=== PATIENT | male | born 1990 | race African-American/Black ===

== ENCOUNTER 2017-10-07 19:02 | Emergency (ER) | payer OTHER, MEDICAID ==
[2017-10-07 19:03] VITALS: BP 127/80; PULSE 90; RESP 16; O2SAT 99
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
[2017-10-07] MEDS ORDERED: TETANUS/DIPHTHERIA TOXOID ADULT 0.5 ML VIAL IM ONE (20:45)
[2017-10-07] MEDS ORDERED: ACETAMINOPHEN 500 MG CPLT PO ONE (20:45)
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
[2017-10-07] MEDS ORDERED: CYCL10TA PO (21:10)
[2017-10-07] MEDS ORDERED: NAPR500 PO (21:10)
== END 2017-10-07 21:25 | disposition home or self-care (01) ==
LOC: NEPK 19:02
DX: S09.90XA Unspecified injury of head, initial encounter (principal); S80.01XA Contusion of right knee, initial encounter; V49.59XA Passenger injured in collision with other motor vehicles in traffic accident, initial encounter; Y92.410 Unspecified street and highway as the place of occurrence of the external cause; Z72.0 Tobacco use; Z23 Encounter for immunization
CPT/HCPCS: 70450; 71020; 72125; 73564; 90471; 90714

== ENCOUNTER 2017-11-16 02:00 | Emergency (ER) | payer BC, MEDICAID ==
[~2017-11-16] VITALS: Ht 172.7 cm; Wt 68.2 kg
[~2017-11-16 02:00] MED LIST: CYCL10TA PO; NAPR500 PO
[2017-11-16 02:26] VITALS: BP 129/80; PULSE 79; RESP 16; TEMP 98.2; O2SAT 98
--- NOTE | 2017-11-16 02:37 | PD ---
HPI Chief Complaint: Lump, Cyst, Hernia Time Seen by Provider: 02:25 Travel History International Travel<30 days: No Contact w/Intl Traveler<30days: No Traveled to known affect area: No History of Present Illness HPI 27-year-old male present for evaluation of a painful lump in the upper gluteal cleft. Symptoms started 2 days ago. Pain is throbbing, constant, worse when sitting. He has never had this problem before. Denies rectal pain, fevers or chills, abdominal pain, nausea or vomiting, drainage. No other complaints at this time. PFS Past Medical History Medical other: Yes (HIV +) Past Surgical History Surgical History: No Previous Surgery Social History Alcohol Use: Yes Tobacco Use: Yes (6 cigarettes per day) Substance Use: No Allergies-Medications (Allergen,Severity, Reaction): Coded Allergies: No Known Allergies (Unverified Adverse Reaction, Unknown, 11/16/17) Reported Meds & Prescriptions Reported Meds & Active Scripts Active Augmentin (Amoxicillin-Clavulanate) 875-125 Mg Tab 1 Tab PO BID 10 Days Naprosyn (Naproxen) 500 Mg Tab 500 Mg PO Q12HR PRN Review of Systems Except as stated in HPI: all other systems reviewed are Neg Physical Exam Narrative GENERAL: Well-nourished male in no acute distress SKIN: Warm and dry. Pilonidal cyst formation noted in the upper gluteal cleft, tender to palpation, 1 cm. HEAD: Atraumatic. Normocephalic. EYES: Pupils equal and round. No scleral icterus. No injection or drainage. ENT: No nasal bleeding or discharge. Mucous membranes pink and moist. NECK: Trachea midline. No JVD. CARDIOVASCULAR: Regular rate and rhythm. No murmur appreciated. RESPIRATORY: No accessory muscle use. Clear to auscultation. Breath sounds equal bilaterally. GASTROINTESTINAL: Abdomen soft, non-tender, nondistended. Hepatic and splenic margins not palpable. Data Data Last Documented VS Vital Signs Date Time Temp Pulse Resp B/P (MAP) Pulse Ox O2 Delivery O2 Flow Rate FiO2 11/16/17 02:26 98.2 79 16 129/80 (96) 98 Room Air Orders Orders Lidocaine 1% Inj (50 Ml) (Xylocaine 1% I (11/16/17 02:45) Wound Culture And Gram Stain (11/16/17 02:34) Ed Discharge Order (11/16/17 02:52) [facility] Medical Decision Making Medical Screen Exam Complete: Yes Emergency Medical Condition: Yes Medical Record Reviewed: Yes Differential Diagnosis Pilonidal cyst, abscess, cellulitis Narrative Course Examination reveals a pilonidal cyst. Incision and drainage performed, patient verbally consented. He is being discharged with Augmentin. Procedures Procedure Narrative INCISION AND DRAINAGE OF INFECTED PILONIDAL CYST: The area was prepped and was sterilely draped. A subcutaneous wheal of 1% Xylocaine with a total number 8 mL was used to anesthetize the area. The area was properly anesthetized. A number 11 scalpel was used to make a 1 -cm incision across the area of the abscess. Cultures were obtained. The abscess was drained an irrigated with normal saline. Diagnosis Primary Impression: Pilonidal cyst with abscess Additional Instructions: Medication as prescribed. Tylenol or Motrin for pain. Follow up with a colorectal surgeon as needed. Warm baths 20 minutes at a time twice a day. Return for any emergent medical conditions. Med/Other Pt SpecificInfo: Prescription(s) given Scripts Amoxicillin-Clavulanate (Augmentin) 875-125 Mg Tab 1 TAB PO BID for Infection for 10 Days, #20 TAB 0 Refills Prov: Michelle Brandt DO 11/16/17 Disposition: 01 DISCHARGE HOME Condition: Stable Mauricio Jimenes Nov 16, 2017 02:37
[2017-11-16] MEDS ORDERED: LIDOCAINE HCL 1% 50 ML VIAL INFIL ONE (02:45)
[2017-11-16] MEDS ORDERED: AUGM875T3 PO (02:52)
== END 2017-11-16 03:22 | disposition home or self-care (01) ==
LOC: NEPD 02:00
DX: L05.01 Pilonidal cyst with abscess (principal); A49.01 Methicillin susceptible Staphylococcus aureus infection, unspecified site; F17.210 Nicotine dependence, cigarettes, uncomplicated; Z21 Asymptomatic human immunodeficiency virus [HIV] infection status
CPT/HCPCS: 10060; 86403; 87070; 87186

== ENCOUNTER 2017-12-18 00:44 | Emergency (ER) | payer BC ==
[~2017-12-18] VITALS: Ht 172.7 cm; Wt 68.0 kg
[~2017-12-18 00:44] MED LIST changes: +AUGM875T3 PO; -CYCL10TA PO
[2017-12-18 00:46] VITALS: BP 136/92; PULSE 82; RESP 16; TEMP 99.1; O2SAT 100
--- NOTE | 2017-12-18 03:35 | PD ---
HPI Chief Complaint: ENT Complaint Time Seen by Provider: 03:35 Travel History International Travel<30 days: No Contact w/Intl Traveler<30days: No Traveled to known affect area: No History of Present Illness HPI 27-year-old male came to the emergency room with history of bumps around his anus. Patient said he noticed it for past 4-5 days. After that he also noticed that he was having some lesions around his left angle of the mouth. Patient has history of renal sex in the past and the last one being a month and a half ago. He practices unprotected sex. No history of rectal bleeding or pain. [facility] Past Medical History Narrative Medical List of his past medical, surgical, social and family history as reviewed from the nursing note. Medical History: Denies Significant Hx Diminished Hearing: No Past Surgical History Surgical History: No Previous Surgery Social History Alcohol Use: Yes Tobacco Use: Yes (3-4 CIGS DAILY) Substance Use: Yes (WEED) Allergies-Medications (Allergen,Severity, Reaction): Coded Allergies: No Known Allergies (Unverified Adverse Reaction, Unknown, 12/18/17) Comments No known drug allergies. Reported Meds & Prescriptions Reported Meds & Active Scripts Active Bacitracin Topical 500 Unit/Gm Oint 1 Applic TOPICAL BID 7 Days Augmentin (Amoxicillin-Clavulanate) 875-125 Mg Tab 1 Tab PO BID 10 Days Naprosyn (Naproxen) 500 Mg Tab 500 Mg PO Q12HR PRN Narrative Medication List of his home medications reviewed from the nursing note. Review of Systems Except as stated in HPI: all other systems reviewed are Neg Physical Exam Narrative GENERAL: Awake, alert, no obvious distress SKIN: Focused skin assessment warm/dry. HEAD: Atraumatic. Normocephalic. EYES: Pupils equal and round. No scleral icterus. No injection or drainage. ENT: No nasal bleeding or discharge. Mucous membranes pink and moist. The right angle of the mouth has some dry papular lesion that is slightly erythematous NECK: Trachea midline. No JVD. CARDIOVASCULAR: Regular rate and rhythm. No murmur appreciated. RESPIRATORY: No accessory muscle use. Clear to auscultation. Breath sounds equal bilaterally. GASTROINTESTINAL: Abdomen soft, non-tender, nondistended. Hepatic and splenic margins not palpable. Skin around the perianal area was full of warts. MUSCULOSKELETAL: No obvious deformities. No clubbing. No cyanosis. No edema. NEUROLOGICAL: Awake and alert. No obvious cranial nerve deficits. Motor grossly within normal limits. Normal speech. PSYCHIATRIC: Appropriate mood and affect; insight and judgment normal. Data Data Last Documented VS Vital Signs Date Time Temp Pulse Resp B/P (MAP) Pulse Ox O2 Delivery O2 Flow Rate FiO2 12/18/17 03:59 12/18/17 00:46 99.1 82 16 100 Orders Orders Ed Discharge Order (12/18/17 03:43) [facility] Medical Decision Making Medical Screen Exam Complete: Yes Emergency Medical Condition: Yes Medical Record Reviewed: Yes Differential Diagnosis HPV Narrative Course Patient was given education regarding HPV. I let him know that there was no treatment that I could offer from the emergency room. But he could Follow-up with the bushing and broach operator and they could discuss about cryo cauterization Procedures EKG Prior to Arrival: No Diagnosis Primary Impression: HPV (human papilloma virus) anogenital infection Additional Impression: Impetigo Referrals: Primary Care Physician Additional Instructions: Given the nature of the infection it could transmit this to your sexual partner by anal sex without protection. She could go to a bushing and broach operator who could possibly chemical or cryo precipitate it. Apply the ointment given to you as per the prescription direction. On your face only. Med/Other Pt SpecificInfo: Prescription(s) given Scripts Bacitracin Topical (Bacitracin Topical) 500 Unit/Gm Oint 1 APPLIC TOPICAL BID for Infection for 7 Days, #30 GM 0 Refills Prov: Adithya Woodson MD 12/18/17 Disposition: 01 DISCHARGE HOME Condition: Stable Adithya Woodson MD Dec 18, 2017 03:35
[2017-12-18] MEDS ORDERED: BACI500O9 TOPICAL (03:46)
== END 2017-12-18 04:03 | disposition home or self-care (01) ==
LOC: NEPC 00:44
DX: A63.0 Anogenital (venereal) warts (principal); L01.00 Impetigo, unspecified; F17.210 Nicotine dependence, cigarettes, uncomplicated
CPT/HCPCS: 99283

== ENCOUNTER 2017-12-22 09:33 | Emergency (ER) | payer BC ==
[~2017-12-22] VITALS: Ht 172.7 cm; Wt 67.0 kg
[~2017-12-22 09:33] MED LIST changes: +BACI500O9 TOPICAL
[2017-12-22 09:34] VITALS: BP 149/86; PULSE 98; RESP 18; TEMP 98.7; O2SAT 99
[2017-12-22] MEDS ORDERED: ACYC800T PO (09:49)
--- NOTE | 2017-12-22 09:57 | PD ---
HPI Chief Complaint: GI Complaint Time Seen by Provider: 09:44 Travel History International Travel<30 days: No Contact w/Intl Traveler<30days: No Traveled to known affect area: No History of Present Illness HPI 27-year-old male states he came here initially when he just had a couple lesions and states that he was discharged and told to continue supportive care. He states that he then went to [facility] when he had more lesions from shingles and was placed on acyclovir. He states that now he is having pain in his mouth and nonbloody emesis from the medication. He states he was also given hydrocodone for pain. He denies any other concurrent complaints at this time. He states he is from [place] that he is down here visiting his boyfriend. [facility] Past Medical History Medical History: Denies Significant Hx Diminished Hearing: No Past Surgical History Surgical History: No Previous Surgery Social History Alcohol Use: Yes Tobacco Use: Yes (3-4 CIGS DAILY) Substance Use: Yes (WEED) Allergies-Medications (Allergen,Severity, Reaction): Coded Allergies: No Known Allergies (Unverified Adverse Reaction, Unknown, 12/22/17) Reported Meds & Prescriptions Reported Meds & Active Scripts Active Percocet (Oxycodone-Acetaminophen) 5-325 mg Tab 1 Tab PO Q6H PRN Zofran Odt (Ondansetron Odt) 4 Mg Tab 4 Mg SL Q6HR PRN Reported Acyclovir 800 Mg Tab 800 Mg PO 5 TIMES A DAY Review of Systems Except as stated in HPI: all other systems reviewed are Neg Physical Exam Narrative GENERAL: Well-nourished, well-developed patient. SKIN: Warm and dry. Patient has rash noted to right lower face in right side of his tongue without involvement of upper face and eye HEAD: Normocephalic and atraumatic. EYES: No injection or drainage. ENT: No nasal drainage noted. NECK: Supple, trachea midline. No meningeal signs CARDIOVASCULAR: Regular rate and rhythm RESPIRATORY: Breath sounds equal bilaterally. No accessory muscle use. GASTROINTESTINAL: Abdomen soft, non-tender, nondistended. EXTREMITIES: No edema. NEUROLOGICAL: Awake and alert. Motor and sensory grossly within normal limits. Normal speech. Data Data Last Documented VS Vital Signs Date Time Temp Pulse Resp B/P (MAP) Pulse Ox O2 Delivery O2 Flow Rate FiO2 12/22/17 11:22 69 18 138/86 (103) 100 Room Air 12/22/17 09:34 98.7 Orders Orders Ondansetron Odt (Zofran Odt) (12/22/17 10:00) Oxycodone-Acetamin 5-325 Mg (Percocet (12/22/17 10:30) Oral Rehydration (12/22/17 10:23) Ed Discharge Order (12/22/17 10:52) Complete Blood Count With Diff (12/22/17 11:16) Basic Metabolic Panel (Bmp) (12/22/17 11:16) Iv Access Insert/Monitor (12/22/17 11:16) Sodium Chlor 0.9% 1000 Ml Inj (Ns 1000 M (12/22/17 11:30) Promethazine Inj (Phenergan Inj) (12/22/17 11:30) Labs Laboratory Tests Test 12/22/17 11:30 White Blood Count 9.4 TH/MM3 Red Blood Count 5.10 MIL/MM3 Hemoglobin 14.2 GM/DL Hematocrit 42.3 % Mean Corpuscular Volume 83.0 FL Mean Corpuscular Hemoglobin 27.8 PG Mean Corpuscular Hemoglobin Concent 33.5 % Red Cell Distribution Width 14.3 % Platelet Count 196 TH/MM3 Mean Platelet Volume 8.3 FL Neutrophils (%) (Auto) 65.3 % Lymphocytes (%) (Auto) 18.5 % Monocytes (%) (Auto) 15.5 % Eosinophils (%) (Auto) 0.4 % Basophils (%) (Auto) 0.3 % Neutrophils # (Auto) 6.1 TH/MM3 Lymphocytes # (Auto) 1.7 TH/MM3 Monocytes # (Auto) 1.5 TH/MM3 Eosinophils # (Auto) 0.0 TH/MM3 Basophils # (Auto) 0.0 TH/MM3 CBC Comment DIFF FINAL Differential Comment Blood Urea Nitrogen 10 MG/DL Creatinine 1.04 MG/DL Random Glucose 106 MG/DL Calcium Level 9.2 MG/DL Sodium Level 136 MEQ/L Potassium Level 3.5 MEQ/L Chloride Level 99 MEQ/L Carbon Dioxide Level 31.0 MEQ/L Anion Gap 6 MEQ/L Estimat Glomerular Filtration Rate 102 ML/MIN MDM Medical Decision Making Medical Screen Exam Complete: Yes Emergency Medical Condition: Yes Medical Record Reviewed: Yes (past history confirmed) Interpretation(s) CBC & BMP Diagram 12/22/17 11:30 Calcium Level 9.2 Differential Diagnosis Shingles, medication effect, gastroenteritis Narrative Course Patient has shingles to his right lower face without other symptoms other than vomiting which is likely secondary to his medications. Patient's vitals are stable here. We'll give him Zofran and if can tolerate liquids at this to his medications to use as needed. Patient able to tolerate liquids with Zofran. Given Percocet here for pain control. Patient denies any new complaints and states that they are feeling better. all questions answered. Patient knows that follow up is incumbent on them and to return to the emergency room immediately if new or worsening symptoms develop. Patient given strict return precautions, vitals reviewed and are normal, agrees to further workup as an outpatient. Requesting to have case management talk with him and this message was passed on to them, to assist him with outpatient care as patient was going to be discharged he started vomiting, will place iv and check basic labs and dose with ivf and phenergan and reassess labs wnl, no further emesis, patient agrees to prior discharge instructions Diagnosis Primary Impression: Shingles Qualified Codes: B02.9 - Zoster without complications Additional Impression: Vomiting Qualified Codes: R11.2 - Nausea with vomiting, unspecified Patient Instructions: General Instructions Additional Instructions: return as needed, follow with primary tommorrow, zofran as needed for nausea, percocet as needed for severe pain Med/Other Pt SpecificInfo: Prescription(s) given Scripts Oxycodone-Acetaminophen (Percocet) 5-325 mg Tab 1 TAB PO Q6H Y for PAIN, #10 TAB 0 Refills Prov: Marisabel Rosales MD 12/22/17 Ondansetron Odt (Zofran Odt) 4 Mg Tab 4 MG SL Q6HR Y for Nausea/Vomiting, #10 TAB 0 Refills Prov: Marisabel Rosales MD 12/22/17 Disposition: 01 DISCHARGE HOME Condition: Stable Marisabel Rosales MD Dec 22, 2017 09:57
[2017-12-22] MEDS ORDERED: ONDANSETRON ODT 4 MG TAB PO ONE (10:00)
[2017-12-22] MEDS ORDERED: oxyCODONE/ACETAMINOPHEN 5 MG/325 MG TAB PO ONE (10:30)
[2017-12-22] MEDS ORDERED: PERC5TAB12 PO (10:54)
[2017-12-22] MEDS ORDERED: ZOFR4TAB3 SL (10:54)
[2017-12-22 11:22] VITALS: BP 138/86; PULSE 69; RESP 18; O2SAT 100
[2017-12-22] MEDS ORDERED: SODIUM CHLOR 0.9% 1000 ML INJ 1,000 ML IV ONE (11:30)
[2017-12-22] MEDS ORDERED: PROMETHAZINE INJ 25 MG/ML VIAL IM ONE (11:30)
[2017-12-22 11:53] LABS: AUTOMATED NEUTROPHIL # 6.1 TH/MM3 (1.8-7.7); BASOPHIL % 0.3 % (0.0-2.0); EOSINOPHIL % 0.4 % (0.0-4.0); HEMATOCRIT 42.3 % (39.0-51.0); HEMOGLOBIN 14.2 GM/DL (13.0-17.0); LYMPH % 18.5 % (9.0-44.0); LYMPHOCYTE # 1.7 TH/MM3 (1.0-4.8); MEAN CORPUSCULAR HEMOGLOBIN 27.8 PG (27.0-34.0); MEAN CORPUSCULAR HGB CONC 33.5 % (32.0-36.0); MEAN PLATELET VOLUME 8.3 FL (7.0-11.0); MONO % 15.5 % (0.0-8.0); MONOCYTE # 1.5 TH/MM3 (0-0.9); NEUT % 65.3 % (16.0-70.0); PLATELET COUNT 196 TH/MM3 (150-450); RED CELL DISTRIBUTION WIDTH 14.3 % (11.6-17.2); WHITE BLOOD COUNT 9.4 TH/MM3 (4.0-11.0)
[2017-12-22 12:12] LABS: CALCIUM 9.2 MG/DL (8.5-10.1); CREATININE 1.04 MG/DL (0.60-1.30)
== END 2017-12-22 12:31 | disposition home or self-care (01) ==
LOC: NEPC 09:33
DX: B02.9 Zoster without complications (principal); R11.2 Nausea with vomiting, unspecified; F17.210 Nicotine dependence, cigarettes, uncomplicated
CPT/HCPCS: 80048; 85025; 96360; 96372; 99284; J2550; J7030